=== PATIENT | male | born 1980 | race Caucasian/White ===

== ENCOUNTER 2017-12-29 20:47 | Emergency (ER) | payer MEDICAID ==
[~2017-12-29] VITALS: Ht 177.8 cm; Wt 89.8 kg
[~2017-12-29 20:47] MED LIST: ALBU18HF2 INH; CYCL-1 PO; IBUP-1986 PO
[2017-12-29 20:54] VITALS: BP 126/72
[2017-12-29] MEDS ORDERED: triamcinolone acetonide 40mg/ml inj IM ONE (21:10)
== END 2017-12-29 21:17 | disposition home or self-care (01) ==
LOC: ER 20:48
DX: L23.7 Allergic contact dermatitis due to plants, except food (principal); J45.909 Unspecified asthma, uncomplicated; Z79.899 Other long term (current) drug therapy
CPT/HCPCS: 96372; 99283; J3301

== ENCOUNTER 2020-02-06 09:12 | Emergency (ER) | payer MEDICAID ==
[~2020-02-06] VITALS: Ht 175.3 cm; Wt 104.5 kg
[2020-02-06] MEDS ORDERED: clindamycin 600mg/D5W 50ml 50 ML IV STA (09:58)
[2020-02-06] MEDS ORDERED: dexamethasone sod phosphate 10mg/ml inj IV STA (09:58)
[2020-02-06] MEDS ORDERED: normal saline 1000ML IV soln IVB ONE (10:00)
[2020-02-06] MEDS ORDERED: iohexol 300mg/ml 100ml inj. ONE (10:06)
--- NOTE | 2020-02-06 10:16 | NUR ---
pt to ct
[2020-02-06 10:17] LABS: BASOPHILS # (AUTO) 0.1 X10'3 (0-0.2); BASOPHILS % (AUTO) 0.7 % (0-1); EOSINOPHILS # (AUTO) 0.3 X10'3 (0-0.9); HEMATOCRIT 44.4 % (42.0-52.0); HEMOGLOBIN 15.6 g/dl (14.0-17.9); LYMPHOCYTES # (AUTO) 3.2 X10'3 (1.1-4.8); LYMPHOCYTES % (AUTO) 22.4 % (21-51); MEAN CORPUSCULAR HEMOGLOBIN 32.4 PG (27.0-31.0); MEAN CORPUSCULAR VOLUME 92.4 FL (78-98); MEAN PLATELET VOLUME 8.3 FL (7.4-10.4); MONOCYTES # (AUTO) 1.5 X10'3 (0-0.9); MONOCYTES % (AUTO) 10.1 % (2-12); NEUTROPHILS # (AUTO) 9.4 X10'3 (1.8-7.7); NEUTROPHILS % (AUTO) 64.8 % (42-75); PLATELET COUNT 276 X10'3 (140-440); RED BLOOD COUNT 4.81 X10'6 (4.70-6.10); RED CELL DISTRIBUTION WIDTH 12.7 % (11.5-14.5); WHITE BLOOD COUNT 14.4 X10'3 (4.5-11.0)
[2020-02-06 10:28] LABS: ALANINE AMINOTRANSFERASE 49 U/L (12-78); ALBUMIN 3.9 G/DL (3.4-5.0); ALKALINE PHOSPHATASE 70 IU/L (46-116); ANION GAP 11 (8-16); BILIRUBIN,TOTAL 1.2 MG/DL (0.1-1.0); BLOOD UREA NITROGEN 14 MG/DL (7-18); BUN/CREATININE RATIO 17.1 (5.4-32.0); CHLORIDE 101 MMOL/L (99-107); CREATININE 0.82 MG/DL (0.60-1.10); GLUCOSE 98 MG/DL (70-104); SODIUM 137 MMOL/L (135-145); TOTAL CARBON DIOXIDE 25.3 MMOL/L (24-32); eGFR > 90 ML/MIN
[2020-02-06 10:29] LABS: ASPARTATE AMINO TRANSFERASE 28 U/L (10-37); POTASSIUM 4.1 MMOL/L (3.5-5.1)
--- NOTE | 2020-02-06 12:37 | NUR ---
[facility] COMING FOR TRANSER 30 MIN ETA
[2020-02-06 13:15] VITALS: BP 117/86
== END 2020-02-06 13:17 | disposition short-term general hospital (02) ==
LOC: ER 09:13
DX: J36 Peritonsillar abscess (principal); J45.909 Unspecified asthma, uncomplicated; F12.90 Cannabis use, unspecified, uncomplicated; Z79.899 Other long term (current) drug therapy
CPT/HCPCS: 36415; 70491; 80053; 85025; 87081; 87880; 96365; 96375; 99285; J1100; J7030; Q9967; J3490

== ENCOUNTER 2022-04-26 13:34 | Emergency (ER) | payer MEDICAID ==
[~2022-04-26] VITALS: Ht 175.3 cm; Wt 84.1 kg
[2022-04-26 13:53] VITALS: BP 106/77
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
[2022-04-26] MEDS ORDERED: cyclobenzaprine 10mg tablet PO ONE (14:30)
[2022-04-26] MEDS ORDERED: ketorolac tromethamine 15mg/ml inj. IM ONE (14:30)
[2022-04-26] MEDS ORDERED: IBUP-1984 PO (14:39)
[2022-04-26] MEDS ORDERED: ORPH100T2 PO (14:39)
== END 2022-04-26 15:00 | disposition home or self-care (01) ==
LOC: ER 13:35
DX: S16.1XXA Strain of muscle, fascia and tendon at neck level, initial encounter (principal); M54.9 Dorsalgia, unspecified; J45.909 Unspecified asthma, uncomplicated; F12.10 Cannabis abuse, uncomplicated; Z79.899 Other long term (current) drug therapy; Z79.2 Long term (current) use of antibiotics; V87.7XXA Person injured in collision between other specified motor vehicles (traffic), initial encounter; Y93.89 Activity, other specified; Y92.89 Other specified places as the place of occurrence of the external cause; Y99.8 Other external cause status
CPT/HCPCS: 96372; 99283; J1885; L0172

== ENCOUNTER → 2023-11-27 | Outpatient (CLI) | payer MEDICAID ==
[~2023-11-27] VITALS: Ht 176.5 cm; Wt 86.6 kg
[~2023-11-27] MED LIST changes: +ORPH100T4 PO
[2023-11-27] MEDS: albuterol 2.5 MG/3 ML nebule NEB PRN (17:25)
[2023-11-27 17:26] VITALS: PULSE 82; RESP 16; O2SAT 98
[2023-11-27 17:47] VITALS: PULSE 98; RESP 16
== END | disposition home or self-care (01) ==
LOC: RT 16:55
PROVIDERS: ATTEND Registered Nurse
DX: J45.998 Other asthma (principal); J45.40 Moderate persistent asthma, uncomplicated
CPT/HCPCS: 94060; 94760

== ENCOUNTER 2025-05-17 16:33 | Emergency (ER) | payer MEDICAID ==
[~2025-05-17] VITALS: Ht 175.3 cm; Wt 89.0 kg
[2025-05-17 16:36] VITALS: TEMP 98.2
--- NOTE | 2025-05-17 17:33 | Physician Documentation ---
History of Present Illness General Chief Complaint: Allergic Reaction Stated Complaint: ALLERGIC REACTION Time Seen by MD: 16:54 [facility] Mode of Arrival: EMS History of Present Illness Initial Comments 44 y/o M with PMH asthma brought in from urgent care by EMS with SOB, hives, wheezing. At approximately 2pm this afternoon he ate a handful of Cheez-its, 5 minutes later he felt his heart pounding, had SOB, audible wheezing, and developed an itchy red rash on his abdomen and legs. He notes that earlier that morning he was scraping bat droppings off of boards at 12pm and wonders if that could have caused his reaction. He did not have an inhaler. He brought himself t o urgent care where he received a breathing treatment and an EpiPen injection, which helped resolve his symptoms. He vomited once. He was then brought by EMS as anaphylaxis precaution. He has a long history of asthma for which he previously received allergy shots, and he carried an epipen as a child, but he has never had food allergies. He currently has no complaints and he denies current SOB, wheezing, chest pain, itching, or rash. Medication Reconciliation Allergies: Coded Allergies: No Known Allergies (Unverified , 05/07/17) Scheduled Albuterol Sulfate (Ventolin Hfa), 2 PUFFS INH Q4HPRN Ibuprofen (Ibuprofen), 1 TAB PO Q8H Orphenadrine Citrate (Norflex), 1 TAB PO Q12H PRN Scheduled PRN Cyclobenzaprine* (Cyclobenzaprine*), 1 TABLET PO Q8H PRN for muscle spasms Past Medical History Past Medical History: Asthma Past Surgical History: noncontributory Alcohol Use: Occasionally Drug Use: marijuana Lives with: Family Lives In: Home Occupation: employed Review of Systems All Other Systems at this time: Reviewed and Negative Physical Exam Physical Exam Vital Signs: Temperature: 98.2, Source: Oral, Heart Rate: 97, Respiratory Rate: 16, BP: 101/75, Pulse Oximetry: 98, Weight: 89.000 Oxygen Flow Rate: 0 Physical Exam VITALS: Reviewed and as above. GENERAL: Alert, no apparent distress. HEENT: Normocephalic, atraumatic, PERRL, EOMI, dry mucosa, no erythema RESPIRATORY: Lungs clear, normal breath sounds, no respiratory distress. CHEST: No accessory muscle use, no retractions CV: Regular rate, rhythm, no edema, no murmur, No: JVD GI: Soft, non-tender, bowels sounds present, no rebound, guarding, or rigidity BACK: No CVA tenderness, or swelling MUSCULOSKELETAL No deformities, no edema SKIN: Warm and dry, no rash NEURO: Oriented x4, No motor or sensory deficit PSYCH: Normal mood and affect, no agitation Progress Results/Orders Results/Orders Completed Orders - ARLTERRIE MD Dexamethasone Inj (Decadron 10mg/Ml Inj) (05/17/25 17:40) Dexamethasone Inj (Decadron 10mg/Ml Inj) (05/17/25 17:48) Diphenhydramine Inj (Benadryl Inj.) (05/17/25 17:48) Vital Signs 05/17/25 05/17/25 05/17/25 16:36 16:46 18:06 Temp 98.2 Pulse 97 106 Resp 15 16 15 B/P (MAP) 101/75 106/72 Pulse Ox 98 96 O2 Flow Rate 0 Medical Decision Making Additional information obtaine: old records Findings The patient presented with a an allergic reaction, the patient has a allergic reactions and some many environmental allergens. The patient states he got epinephrine and an outside urgent care clinic and was advised to come to the emergency department patient does have a little bit of erythema to his hands he is itching he was given a dose of Benadryl and a dose of Decadron here. The patient was offered an EpiPen he is refusing an EpiPen he does not want to ever give himself a shot of epinephrine. I told him that that was not hassan and he continued to refuse the EpiPen prescription. The patient is in no distress he is not hypoxic his oxygen saturation was interpreted as normal he was hemodynamically stable and he was discharged. Prior hospitalizations were reviewed Differential Diagnosis Allergic reaction, anxiety, Departure Time of Disposition: 17:49 Disposition: 01 HOME / SELF CARE / HOMELESS Impression: Primary Impression: Acute allergic reaction Qualified Codes: T78.40XA - Allergy, unspecified, initial encounter Discharge Instructions: Anaphylactic Reaction, Adult, [id number] Referrals: NO PRIMARY CARE PROVIDER (PCP) Signature Scribe Signature: No scribe Attestation: The note accurately reflects work and decisions made by me.Terrie Ludwig MD 05/19/25 06:54 TERRIE LUDWIG MD May 17, 2025 17:33
[2025-05-17] MEDS ORDERED: dexamethasone sod phosphate 10mg/ml inj PO STA (17:40)
[2025-05-17] MEDS: dexamethasone sod phosphate 10mg/ml inj IV STA (17:52)
[2025-05-17 18:06] VITALS: BP 106/72; PULSE 106; RESP 15; O2SAT 96
== END 2025-05-17 18:06 | disposition home or self-care (01) ==
LOC: ER 16:33
DX: T78.49XA Other allergy, initial encounter (principal); F12.90 Cannabis use, unspecified, uncomplicated; Z79.899 Other long term (current) drug therapy; Z72.89 Other problems related to lifestyle; X58.XXXA Exposure to other specified factors, initial encounter
CPT/HCPCS: 96374; 96375; 99284; J1100; J1200